=== PATIENT | male | born 1945 | race Caucasian/White ===

== ENCOUNTER 2020-11-10 09:17 | Emergency (ER) | payer BC, MEDICARE ==
[2020-11-10] MEDS ORDERED: SODIUM CHLORIDE 0.9% 1,000 ML IV STA (09:33)
[2020-11-10] MEDS ORDERED: diltiaZEM INJ 5 MG/ML VIAL IVP STA (09:33)
--- NOTE | 2020-11-10 09:38 | ED Physician Documentation ---
History of Present Illness - Stated complaint Stated Complaint: IRREGULAR HEART BEAT - Chief complaint Chief Complaint: Cardiac - History obtained from History obtained from: Patient - Additonal information Additional information: Patient comes emergency department chief complaint of heart pounding and throat tightness that started around 1500 yesterday. Patient states it was a very distinct onset and he is certain that this is when his current condition arose. Patient denies any nausea or vomiting. No actual chest pain. He states he had an episode like this once before, about 2 weeks ago and it spontaneously resolved on its own. He states that he does not have a previous diagnosis of any sort of dysrhythmia, including atrial fibrillation. Patient states he is generally in fairly good shape and has not had any dyspnea on exertion. No history of coronary artery disease. Patient takes aspirin occasionally but is not regularly on either a baby aspirin or any other sort of anticoagulation. He takes losartan and an antihyperlipidemic. No other complaints at this time. He is established with primary care in [place]. Review of Systems Ten Systems: 10 systems reviewed and negative Constitutional: reports: Reviewed and negative Eyes: reports: Reviewed and negative Ears: reports: Reviewed and negative Nose: reports: Reviewed and negative Throat: reports: Reviewed and negative Cardiac: reports: Palpitations. denies: Chest pain / pressure Respiratory: reports: Reviewed and negative GI: reports: Reviewed and negative : reports: Reviewed and negative Skin: reports: Reviewed and negative Musculoskeletal: reports: Reviewed and negative Neurologic: reports: Reviewed and negative Psychiatric: reports: Reviewed and negative Endocrine: reports: Reviewed and negative Immunocompromised: reports: Reviewed and negative PD PAST MEDICAL HISTORY - Present Medications Home Medications: Ambulatory Orders Medication Instructions Recorded Confirmed Diltiazem HCl [Cardizem LA] 120 mg PO DAILY #30 11/10/20 - Allergies Allergies/Adverse Reactions: Allergies Allergy/AdvReac Type Severity Reaction Status Date / Time No Known Drug Allergies Allergy Verified 11/10/20 09:28 PD ED PE NORMAL - Vitals Vital signs reviewed: Yes - General General: Alert and oriented X 3, No acute distress, Well developed/nourished - HEENT HEENT: Atraumatic, PERRL, EOMI, Moist mucous membranes - Neck Neck: Supple, no meningeal sign - Cardiac Cardiac: No murmur, Other (Irregular rate and rhythm) - Respiratory Respiratory: No respiratory distress, Clear bilaterally - Abdomen Abdomen: Soft, Non tender, Non distended - Derm Derm: Normal color, Warm and dry, No rash - Extremities Extremities: No deformity, No edema - Neuro Neuro: Alert and oriented X 3, 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, No motor deficit, No sensory deficit, Normal speech - Psych Psych: Normal mood, Normal affect Results - Vitals Vitals: Oxygen O2 Source Room air Oxygen Flow Rate 2 - EKG (time done) 0926 Rate: Rate (enter#) (110) Rhythm: Atrial fibrillation [place]: Normal QRS: Normal Ischemia: Normal ST segments Compare to prior EKG: Old EKG unavailable Computer interpretation: Agree with computer - Labs Labs: Laboratory Tests 11/10/20 11/10/20 11/10/20 09:37 09:37 09:37 WBC 5.9 RBC 4.90 Hgb 15.6 Hct 47.4 MCV 96.7 H MCH 31.8 H MCHC 32.9 RDW 12.5 Plt Count 303 MPV 9.2 Neut # (Auto) 3.9 Lymph # (Auto) 1.0 L [place] # (Auto) 0.7 Eos # (Auto) 0.2 Baso # (Auto) 0.1 Absolute Nucleated RBC 0.00 Nucleated RBC % 0.0 Sodium 140 Potassium 4.4 Chloride 104 Carbon Dioxide 26 Anion Gap 10.0 BUN 14 Creatinine 0.9 Estimated GFR (MDRD) 82 L Glucose 106 H Calcium 9.5 Total Bilirubin 0.9 AST 19 ALT 20 Alkaline Phosphatase 85 B-Natriuretic Peptide 222 H Total Protein 7.1 Albumin 4.2 Globulin 2.9 Albumin/Globulin Ratio 1.4 Lipase 53 H - Rads (name of study) chest xr Radiology: Final report received, EMP read indepedently, See rad report (neg) Procedures - Cardioversion 1,2,3 Time of attempt: 11:42 Indication: Tachyarrhythmia Risks, benefits, alternatives explained to: Pt Prep: IV, O2, equipment monitor phototypesetting, Pulse ox, Airway equip CS via: Paddles Sync: Biphasic, 50j, 100j Post cardioversion rhythm: A-fib (Patient received 1 shock of 50 J and 201 100 with brief success after the third shock. However, shortly after converting to sinus rhythm, the patient did go back into atrial fibrillation.) Performed by: ED MD PAIGE MEDICAL DECISION MAKING - ED course Complexity details: reviewed results, re-evaluated patient, considered differential, d/w patient ED course: I reviewed previous records for the patient, but he had never been to our emergency department before. Patient had a very distinct onset of symptoms, and was certain that this was an acute episode. I discussed with him the pros and cons of electrical cardioversion, including the possibility of thrombus, though I feel the likelihood of this is low, given that his symptoms started less than 24 hours ago. Patient was initially given a liter fluid and 20 mg of diltiazem IV, as his rate was fluctuating between the 90s and 140s. Labs were drawn and sent. EKG showed findings consistent with A. fib but no other specific and concerning findings. The patient did have good rate control after the diltiazem but did not spontaneously convert. I did obtain informed consent for procedural sedation and cardioversion. Patient was given 5 mg of Versed IV and 3 cardioversion attempts were made, first at 50 J, then 100, then 100 again. The third attempt was successful, but patient did go back into atrial fibrillation within less than a minute, after being in sinus rhythm. I discussed with the patient that we will put him on Cardizem for rate control and we will have him speak with his doctor to follow-up with cardiology. Departure - Departure Disposition: 01 Home, Self Care Clinical Impression: Atrial fibrillation with rapid ventricular response Condition: Stable Instructions: ED Afib Prescriptions: Diltiazem HCl [Cardizem LA] 120 mg PO DAILY #30 Comments: We gave you 3 shocks to try to get your heart out of atrial fibrillation, but though it did come out briefly on the third shock, and went right back into that rhythm. Unfortunately, this indicates that you most likely have been in the rhythm more often or For longer than you realize and as such, the nerves have become habituated to this. You will need to talk to your doctor about following up with cardiology. You should take the medication prescribed to help keep your rate controlled. You were given a sedating medication today for the shock, and as such, should not drive for the next 24 hours. Discharge Date/Time: 11/10/20 13:04
[2020-11-10 09:54] LABS: BASOPHILS # (AUTO) 0.1 10^3/uL (0.0-0.1); BASOPHILS % (AUTO) 1.4 %; EOSINOPHILS # (AUTO) 0.2 10^3/uL (0.0-0.7); EOSINOPHILS % (AUTO) 4.1 %; HCT - HEMATOCRIT 47.4 % (42.0-52.0); HGB - HEMOGLOBIN 15.6 g/dL (14.0-18.0); LYMPHOCYTES % (AUTO) 16.4 %; MEAN CORPUSCULAR HEMOGLOBIN 31.8 pg (27.0-31.0); MEAN CORPUSCULAR HGB CONC 32.9 g/dL (32.0-36.0); MEAN CORPUSCULAR VOLUME 96.7 fL (80.0-94.0); MEAN PLATELET VOLUME 9.2 fL (7.4-11.4); MONOCYTES # (AUTO) 0.7 10^3/uL (0.0-1.0); MONOCYTES % (AUTO) 11.8 %; NEUTROPHILS # (AUTO) 3.9 10^3/uL (1.5-6.6); NEUTROPHILS % (AUTO) 65.8 %; PLT - PLATELET COUNT 303 10^3/uL (130-450); RED CELL DISTRIBUTION WIDTH 12.5 % (12.0-15.0); WHITE BLOOD COUNT 5.9 x10^3/uL (4.8-10.8)
[2020-11-10 10:09] LABS: ALBUMIN 4.2 g/dL (3.2-5.5); ALBUMIN/GLOBULIN RATIO 1.4 (1.0-2.2); BILIRUBIN,TOTAL 0.9 mg/dL (0.2-1.0); CALCIUM 9.5 mg/dL (8.5-10.3); CREATININE 0.9 mg/dL (0.6-1.2); POTASSIUM 4.4 mmol/L (3.5-5.0); TOTAL PROTEIN 7.1 g/dL (6.7-8.2)
[2020-11-10] MEDS ORDERED: MIDAZOLAM 2 MG/2 ML VIAL IVP STA (11:16)
[2020-11-10] MEDS ORDERED: MIDAZOLAM 10 MG/2 ML VIAL IVP STA (11:22)
[2020-11-10] MEDS ORDERED: diltiaZEM CD 120 MG CAPSULE PO STA (12:08)
[2020-11-10] MEDS ORDERED: diltiaZEM CD 240 MG CAPSULE PO STA (12:33)
[2020-11-10 13:03] VITALS: BP 94/62
== END 2020-11-10 13:04 | disposition home or self-care (01) ==
LOC: ED 09:17
DX: I48.20 Chronic atrial fibrillation, unspecified (principal)
CPT/HCPCS: 36415; 80053; 83690; 83880; 85025; 92960; 93005; 96374; 96375; 99284; 99285; A9270; J2250; 94770